=== PATIENT | female | born 1960 | race Caucasian/White ===

== ENCOUNTER → 2016-10-23 | Outpatient (CLI) | payer BC ==
[2016-06-11 08:35] VITALS: BP 154/75
[~2016-10-23] MED LIST: HYDR-971 PO; ONDA4TAB10 PO
--- NOTE | 2016-10-23 16:32 | KCIC ---
PROCEDURE MR of the right wrist HISTORY Right wrist pain. Injury in the middle of September at the ulnar aspect. TECHNIQUE Routine multiplanar sequences are obtained. COMPARISON None FINDINGS Bone marrow edema involving the triquetrum with a probable nondisplaced fracture. There is steep ulnar angulation of the distal radial articular surface. There is wedging of the proximal carpal row between the radius and ulna, with the lunate located at the apex between the radius and ulna. Findings suggest Madelung deformity, recommend correlation with conventional x-rays. Small cyst at the proximal pole of the scaphoid and in the lunate. Ulna plus variance with some deformity of the triangular fibrocartilage but no evidence of through and through rupture. Mild extensor carpi ulnaris tendinosis signal compatible with tendinosis. Medial subluxation of the tendon. Other extensor compartments are intact. Flexor tendons are intact. Median nerve unremarkable. Degenerative signal at the scapholunate ligament without evidence of rupture. Lunotriquetral ligament is not well seen. No significant joint effusion. No abnormal soft tissue fluid collection. IMPRESSION 1. Bone marrow contusion with probable nondisplaced fracture of the triquetrum bone. 2. 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 Correlate with conventional radiographs. 3. Mild extensor carpi ulnaris tendinosis with medial subluxation. 4. 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 Electronically signed by: Reynaldo Salinas MD (October 23, 2016 16:30:44)
== END | disposition home or self-care (01) ==
LOC: KCIC MRI 14:25
PROVIDERS: ATTEND Plastic Surgery
DX: M25.531 Pain in right wrist (principal)
CPT/HCPCS: 73221